=== PATIENT | male | born 1975 | race African-American/Black ===

== ENCOUNTER 2017-04-08 19:14 | Emergency (ER) | payer OTHER ==
[~2017-04-08] VITALS: Ht 167.6 cm; Wt 88.5 kg
[~2017-04-08 19:14] MED LIST: ALLEGRA60 M1 PO; AMOXICILLIN875 MG PO; NO MEDICATIONS
[2017-04-08 21:22] LABS: URINE SOURCE CLEAN CATCH
[2017-04-08 21:25] LABS: MICRO INDICATED? NO; URINE APPEARANCE CLEAR; URINE BILIRUBIN NEG (NEG); URINE BLOOD NEG (NEG); URINE COLOR YELLOW; URINE GLUCOSE NEG (NORM); URINE KETONE NEG (NEG); URINE LEUKOCYTE ESTERASE NEG (NEG); URINE NITRATE NEG (NEG); URINE PROTEIN NEG (NEG); URINE SPECIFIC GRAVITY <=1.005 (1.003-1.035); URINE UROBILINOGEN 0.2 MG/DL (NORM)
[2017-04-11 09:31] LABS: CHLAMYDIA TRACH Not Detected (Not Detected); N GONOR Not Detected (Not Detected)
== END 2017-04-08 22:21 | disposition home or self-care (01) ==
LOC: SED 19:14
PROVIDERS: Student in an Organized Health Care Education/Training Program
DX: Z71.1 Person with feared health complaint in whom no diagnosis is made (principal); F17.200 Nicotine dependence, unspecified, uncomplicated
CPT/HCPCS: 81003; 87491; 87591; 99283